=== PATIENT | male | born 1955 | race Two or more races ===

== ENCOUNTER → 2018-03-28 | Outpatient (CLI) | payer BC ==
[~2018-03-28] MED LIST: ASPI325T8 PO; FERR325T14 PO; MULT1TAB52 PO
[2018-03-28 09:48] LABS: BASO # 0.1 x10^3/uL (0.0-0.2); BASO % 1 % (0-3); EOS % 1 % (0-3); HEMATOCRIT 41.2 % (39.0-53.0); HEMOGLOBIN 13.7 g/dL (13.0-17.5); LYMPH # 0.8 x10^3/uL (1.0-4.8); LYMPH % 21 % (24-48); MEAN CORPUSCULAR HEMOGLOBIN 29 pg (25-35); MEAN CORPUSCULAR HGB CONC 33 g/dL (31-37); MEAN CORPUSCULAR VOLUME 86 fL (79-100); MONO # 0.3 x10^3/uL (0.0-1.1); MONO % 8 % (0-9); NEUT # 2.8 x10^3uL (1.8-7.7); NEUT % 70 % (31-73); PLATELET COUNT 171 x10^3/uL (140-400); RED BLOOD COUNT 4.77 x10^6/uL (4.30-5.70); RED CELL DISTRIBUTION WIDTH 13.8 % (11.5-14.5); WHITE BLOOD COUNT 4.1 x10^3/uL (4.0-11.0)
[2018-03-28 09:59] LABS: ALBUMIN 3.9 g/dL (3.4-5.0); CALCIUM 8.6 mg/dL (8.5-10.1); CREATININE 0.8 mg/dL (0.7-1.3); GFR 97.3; POTASSIUM 3.8 mmol/L (3.5-5.1)
[2018-03-28 11:49] LABS: BILIRUBIN,URINE NEGATIVE (NEG); CLARITY,URINE CLEAR; COLOR,URINE YELLOW; NITRITE,URINE NEGATIVE (NEG); PROTEIN,URINE NEGATIVE (NEG-TRACE); UROBILINOGEN,URINE 0.2 mg/dL (0.2 mg/dL)
[2018-03-28 11:58] LABS: BACTERIA,URINE FEW /HPF (0-FEW); RBC,URINE 0 /HPF (0-2)
--- NOTE | 2018-03-28 12:53 | EKG ---
[address] [place] [id number] Test Date: 2018-03-28 Test Time: 12:46:48 Pat Name: JOSELITO GUERRA Department: Room: Gender: M [employer]: EWA : 1955 Requested By: LUL DAVISON Order Number: [id number] Reading MD: Jose Guadalupe Millan MD Measurements Intervals [place] Rate: 59 P: 54 OK: 204 QRS: 81 QRSD: 106 T: 37 QT: 396 QTc: 396 Interpretive Statements SINUS RHYTHM Electronically Signed On 03-29-2018 12:45:13 CDT by Jose Guadalupe Millan MD
--- NOTE | 2018-03-28 14:34 | RAD ---
EXAM: Chest, 2 views. HISTORY: Preoperative evaluation. Cigarette smoking history. COMPARISON: None. FINDINGS: Frontal and lateral views of the chest are obtained. There is hyperinflation due to emphysema. There is no infiltrate, pleural effusion or pneumothorax. The heart is normal in size. There is focal opacity overlying the right lower lobe due to overlying osseous and pulmonary vascular shadows. There is also a 1.0 cm nodule overlying the right upper lobe likely due to a prominent anterior right first rib end. IMPRESSION: 1. Emphysema. 2. Nodule overlying the right upper lobe likely due to a prominent anterior rib end. Radiographic follow-up can be performed to exclude a parenchymal nodule in this location. Electronically signed by: Darlin Ku MD (03/28/2018 2:31 PM) [place] [id number]
== END | disposition home or self-care (01) ==
LOC: SURGPAT 13:00
PROVIDERS: ATTEND Orthopaedic Surgery
DX: Z01.818 Encounter for other preprocedural examination (principal); J43.9 Emphysema, unspecified; R91.1 Solitary pulmonary nodule; Z87.891 Personal history of nicotine dependence
CPT/HCPCS: 36415; 71046; 80048; 81001; 82040; 82306; 85025; 85610; 85651; 85730; 87641; 93005